=== PATIENT | female | born 1940 | race Caucasian/White ===

== ENCOUNTER → 2018-09-28 | Emergency (ER) | payer MEDICARE ==
[~2018-09-28] MED LIST: Iodixanol* (CONTRAST) 320 MG/ML 100 ML SDV IV ONE; Morphine 4 MG/ML VIAL (1 ml) 4 MG/ML VIAL IV ONE; Ondansetron INJ* 2 MG/ML VIAL IV ONE; hydrALAZINE IV* 20 MG/ML VIAL IV SLOW PU ONE
--- NOTE | 2018-09-28 02:35 | ED ---
Abdominal Pain/Female - HPI Summary HPI Summary: This pt is a 78 y/o F presenting to [facility] with her and a CC of RUQ abdominal pain that has begun to radiate into her back. She states that she was recently diagnosed with muscle pain from her PCP. Tonight she stated that she took her pain medication at 0000 09/28/18 but by 0100 the pt states that the pain was too much to bear. She stated that the pain was rated a 9/10 in severity. The pain has been worsening since 09/24/18. She stated that she was also feeling nauseas but denies any vomiting during the onset. She also denies any fevers, diaphoresis, headaches, and CP. She had no aggravating or alleviating symptoms. She has no pertinent Hx. - History of Current Complaint Chief Complaint: EDFlankPain Stated Complaint: R FLANK PAIN PER PT Time Seen by Provider: 09/28/18 02:18 Hx Obtained From: Patient ?: No Onset/Duration: Gradual Onset, Lasting Days - 4, Still Present, Worse Since - onset Timing: Intermittent Episode Lasting Severity Initially: Moderate Severity Currently: Severe Pain Intensity: 9 Pain Scale Used: 0-10 Numeric Location: Discrete At: RUQ Radiates: Yes Radiates to: Back Aggravating Factor(s): Nothing Alleviating Factor(s): Nothing Associated Signs and Symptoms: Positive: Negative - headaches, Back Pain, Nausea. Negative: Diaphoresis, Fever, Chest Pain, Vomiting, Diarrhea Allergies/Adverse Reactions: Allergies Allergy/AdvReac Type Severity Reaction Status Date / Time codeine Allergy Nausea Verified 09/28/18 01:59 Xivazht-Rxl-Bha Reductase Allergy Unknown Verified 09/28/18 01:59 Inhibitor Reaction Details Sulfa (Sulfonamide Allergy Unknown Verified 09/28/18 01:59 Antibiotics) Reaction Details varenicline Allergy Unknown Verified 09/28/18 01:59 Reaction Details Home Medications: Home Medications Cyclobenzaprine TAB* [Flexeril 10 MG TAB*] 10 mg PO TID PRN 09/28/18 [History Confirmed 09/28/18] Meloxicam 7.5 mg PO TID PRN 09/28/18 [History Confirmed 09/28/18] PMH/Surg Hx/FS Hx/Imm Hx Previously Healthy: No Endocrine/Hematology History: Reports: Hx Diabetes - DIET CONTROLLED Musculoskeletal History: Reports: Hx Arthritis - LEFT HAND,BACK Denies: Hx Osteoporosis Sensory History: Reports: Hx Contacts or Glasses - READING Denies: Hx Hearing Aid Opthamlomology History: Reports: Hx Contacts or Glasses - READING - Surgical History Surgery Procedure, Year, and Place: APPENDECTOMY 1998. HYSTERECTOMY 1977 [facility] [place]. BILAT FALLOPIAN TUBE SURGERY 1971 [facility] [place] Hx Anesthesia Reactions: No Infectious Disease History: No Infectious Disease History: Denies: Traveled Outside the [place] in Last 30 Days - Social History Alcohol Use: Daily Alcohol Amount: 2 SHOTS/DAY Substance Use Type: Reports: None Smoking Status (MU): Heavy Every Day Tobacco Smoker Type: Cigarettes Amount Used/How Often: 1 PACK/DAY Length of Time of Smoking/Using Tobacco: 16 YRS Have You Smoked in the Last Year: Yes Review of Systems Negative: Fever, Skin Diaphoresis Negative: Chest Pain Positive: Abdominal Pain - RUQ, Nausea. Negative: Vomiting, Diarrhea Positive: Other - back pain Negative: Headache All Other Systems Reviewed And Are Negative: Yes Physical Exam - Summary Physical Exam Summary: VITAL SIGNS: Reviewed. GENERAL: Patient is a well-developed and nourished female who is lying comfortable in the stretcher. Patient is not in any acute respiratory distress. HEAD AND FACE: No signs of trauma. No ecchymosis, hematomas or skull depressions. No sinus tenderness. EYES: PERRLA, EOMI x 2, No injected conjunctiva, no nystagmus. EARS: Hearing grossly intact. Ear canals and tympanic membranes are within normal limits. MOUTH: Oropharynx within normal limits. NECK: Supple, trachea is midline, no adenopathy, no JVD, no carotid bruit, no c- spine tenderness, neck with full ROM CHEST: Symmetric, no tenderness at palpation LUNGS: Clear to auscultation bilaterally. No wheezing or crackles. CVS: Regular rate and rhythm, S1 and S2 present, no murmurs or gallops appreciated. ABDOMEN: Soft, RUQ tenderness. No signs of distention. No rebound no guarding, and no masses palpated. Bowel sounds are normal. EXTREMITIES: FROM in all major joints, no edema, no cyanosis or clubbing. NEURO: Alert and oriented x 3. No acute neurological deficits. Speech is normal and follows commands. SKIN: Dry and warm Triage Information Reviewed: Yes Vital Signs On Initial Exam: Initial Vitals Temp Pulse Resp BP Pulse Ox 97.7 F 64 18 211/86 99 09/28/18 01:54 09/28/18 01:54 09/28/18 01:54 09/28/18 01:54 09/28/18 01:54 Vital Signs Reviewed: Yes Diagnostics - Vital Signs Vital Signs Temp Pulse Resp BP Pulse Ox 09/28/18 01:54 97.7 F 64 18 211/86 99 - Laboratory Result Diagrams: 09/28/18 02:51 09/28/18 02:51 Lab Statement: Any lab studies that have been ordered have been reviewed, and results considered in the medical decision making process. - CT CT A/P CT Interpretation Completed By: Radiologist Summary of CT Findings: 1. Question of sludge or faint stones in the gallbladder. 2. Atherosclerotic plaque at the left renal artery origin with suggestion of a. significant stenosis. 3. Colonic diverticulosis without diverticulitis. 4. Status post hysterectomy. 5. Borderline fluid distention of some small bowel segments in the left abdomen. with air-fluid levels which may reflect ileus or possible enteritis. 6. Otherwise negative CT abdomen/ pelvis. ED Physician has reviewed this report Abdominal Pain Fem Course/Dx - Course Course Of Treatment: This pt is a 78 y/o F presenting to [facility] with her and a CC of R sided flank pain that has begun to radiate into her back. She states that she was recently diagnosed with muscle pain from her PCP. Tonight she stated that she took her pain medication at 0000 09/28/18 but by 0100 the pt states that the pain was too much to bear. Her PE found that she had RUQ tenderness. Her CT A/P found 1. Question of sludge or faint stones in the gallbladder. 2. Atherosclerotic plaque at the left renal artery origin with suggestion of a. significant stenosis. 3. Colonic diverticulosis without diverticulitis. 4. Status post hysterectomy. 5. Borderline fluid distention of some small bowel segments in the left abdomen. with air-fluid levels which may reflect ileus or possible enteritis. 6. Otherwise negative CT abdomen/ pelvis. She has no abnormal lab values. She will be discharged home with a Dx of cholelithiases and given instructions to follow up with surgery DEEPA. - Diagnoses Provider Diagnoses: Cholelithiases Discharge - Sign-Out/Discharge Documenting (check all that apply): Patient Departure - discharge Patient Received Moderate/Deep Sedation with Procedure: No - Discharge Plan Condition: Stable Disposition: HOME Patient Education Materials: Gallstones (ED) Referrals: Mauricio Aldrich MD [Primary Care Provider] - 2 Days Additional Instructions: Please follow up with Dr. Vital, Surgery, [facility] for a surgery consultation. Also follow up with your primary care physician in 2 days. Take the prescribed medication as directed. - Attestation Statements Document Initiated by Scribe: Yes Documenting Scribe: Renan Cook Provider For Whom Scribe is Documenting (Include Credential): Jacques Garcia MD Scribe Attestation: IRenan, scribed for Jacques Garcia MD on 09/28/18 at 0606. Status of Scribe Document: Ready
[2018-09-28 02:58] LABS: ABS Basophils 0.1 10^3/ul (0-0.2); ABS Eosinophils 0.1 10^3/ul (0-0.6); ABS Lymphocytes 1.5 10^3/ul (1.0-4.8); ABS Monocytes 0.5 10^3/ul (0-0.8); ABS Neutrophils 5.9 10^3/ul (1.5-7.7); Eosinophil % 1.5 %; Hematocrit 47 % (35-47); Hemoglobin 15.8 g/dL (12.0-16.0); Lymphocyte % 18.9 %; Mean Corpuscular HGB Conc 34 g/dL (31-36); Mean Corpuscular Hemoglobin 30 pg (27-31); Mean Corpuscular Volume 90 fL (80-97); Mean Platelet Volume 10.6 fL (7.4-10.4); Nucleated Red Blood Cells % 0.1; Platelet Count 166 10^3/uL (150-450); Red Blood Count 5.22 10^6 /uL (3.70-4.87); Red Cell Distribution Width 15 % (10-15); White Blood Count 8.1 10^3/uL (3.5-10.8)
[2018-09-28 03:13] LABS: Albumin 4.2 g/dL (3.2-5.2); Albumin/Globulin Ratio 1.3 (1-3); BUN/Creatinine Ratio 13.5 (8-20); C Reactive Protein 5.58 mg/L (<8.01); Calcium 9.7 mg/dL (8.6-10.3); EGFR African American 68.4 (>60); EGFR Non-African American 56.5 (>60); Globulin 3.2 g/dL (2-4); Potassium 4.1 mmol/L (3.5-5.0); Total Bilirubin 0.4 mg/dL (0.2-1.0); Total Protein 7.4 g/dL (6.4-8.9)
[2018-09-28 03:29] LABS: Activated Partial Thrombo Time 33.9 seconds (26.0-38.0); INR 0.88 (0.82-1.09)
[2018-09-28 06:32] VITALS: BP 124/54
== END | disposition home or self-care (01) ==
LOC: ED 01:51
DX: K80.20 Calculus of gallbladder without cholecystitis without obstruction (principal); E11.9 Type 2 diabetes mellitus without complications; F17.210 Nicotine dependence, cigarettes, uncomplicated; Z88.5 Allergy status to narcotic agent; Z88.2 Allergy status to sulfonamides; Z88.8 Allergy status to other drugs, medicaments and biological substances; Z79.899 Other long term (current) drug therapy; I70.1 Atherosclerosis of renal artery; Z90.710 Acquired absence of both cervix and uterus
CPT/HCPCS: 36415; 74177; 80053; 82150; 83690; 85025; 85610; 85730; 86140; 96365; 96375; 99285; J0360; J2270; J2405; Q9967

== ENCOUNTER 2018-10-04 10:22 | Observation (INO) | payer MEDICARE ==
[~2018-10-04 10:22] MED LIST changes: -Iodixanol* (CONTRAST) 320 MG/ML 100 ML SDV IV ONE; -Morphine 4 MG/ML VIAL (1 ml) 4 MG/ML VIAL IV ONE; -Ondansetron INJ* 2 MG/ML VIAL IV ONE; +ceFAZolin 2 GM in NS PREMIX(*) 2 GM/100 ML BAG IVPB ONE; +ceFAZolin VIAL(*) 2 GM in NS 0.9% 100 ML* 100 ML IVPB ONE; -hydrALAZINE IV* 20 MG/ML VIAL IV SLOW PU ONE
--- OUTSIDE RECORDS SUMMARY | 2018-10-04 10:46 | XMS REPORT | Continuity of Care Document ---
:1940 External Reference #:[id number] Author Name Juana, Cynthia Care Team Providers Name Role Phone Michela Leigh MD Primary Care Physician Unavailable Payers Date Identification Numbers Payment Provider Subscriber Effective: 2017 Policy Number: [id number] [employer] Jeanette Lill PayID: [id number] [address] [place] [address] Effective: 2014 Policy Number: [id number] Medicare Blue [facility] Jeanette Bucio Group Number: [id number] [address] [address] PayID: [id number] [place] [address] Problems Active Problems Provider Date Diabetes mellitus Mauricio Aldrich M.D. Onset: 07/09/2014 Dyslipidemia Mauricio Aldrich M.D. Onset: 07/09/2014 Neuropathy Mauricio Aldrich M.D. Onset: 07/09/2014 Tobacco user Mauricio Aldrich M.D. Onset: 07/09/2014 Localized, primary osteoarthritis of the Jagdeep Villalba M.D. Onset: 2015 pelvic region and thigh Prosthetic arthroplasty of the hip Jagdeep Villalba M.D. Onset: 04/17/2015 Family History Date Family Member(s) Observation Comments General Unknown Social History Type Date Description Comments Sex Unknown Marital Status Lives With Spouse Occupation Retired ETOH Use Drinks 3 Alcoholic Beverages Per Week Tobacco Use Start: Unknown Heavy tobacco smoker 1 PPD x 15 years (more than 10 cigarettes/day) Recreational Drug Use Denies Drug Use Smoking Status Reviewed: 09/29/18 Heavy tobacco smoker 1 PPD x 15 years (more than 10 cigarettes/day) Exercise Type/Frequency Does not exercise Allergies, Adverse Reactions, Alerts Active Allergies Reaction Severity Comments Date Sulfa Antibiotics 03/21/2014 Chantix 03/21/2014 Statins 03/21/2014 Codeine 03/21/2014 Medications Active Medications SIG Qnty Indications Ordering Provider Date Aspirin as needed Unknown 325mg Tablets Naproxen 1 tablet with Unknown 500mg Tablets food by mouth twice a day as needed Vitamin D 1 by mouth every Unknown 2000Unit day Tablets History Medications Nicotine apply 1 patch per 30units 305.1 Mauricio Aldrich, 07/19/2014 - day M.D. 11/28/2014 14mg/24HR Patches 24HR Caltrate 600+D 1 by mouth twice a 60tabs M85.9 Mauricio Aldrich, 07/19/2014 - day M.D. Unknown [id number] Tablets Oxycodone-Acetamin one to two tabs by 90tabs Jagdeep Villalba, 04/24/2014 - ophen mouth every 4-6 M.D. 05/27/2014 5-325mg hours as needed for Tablets pain Colace one capsule two 60caps Jagdeep Villalba, 04/24/2014 - 100mg times a day as M.D. 05/27/2014 Capsules needed constipation Coumadin as directed 30tabs Jagdeep Villalba, 04/24/2014 - 2mg M.D. 05/27/2014 Tablets Zetia 1 by mouth every day 90tabs Amrit James, - 10mg [employer] Unknown Tablets Gabapentin 1 capsule at bedtime 90caps Mauricio Aldrich, - 300mg (pt taking as M.D. Unknown Capsules needed) Vital Signs Date Vital Result Comment 09/29/2018 2:29pm Height 62 inches 5'2" Weight 140.00 lb Heart Rate 72 /min BP Systolic 130 mmHg BP Diastolic 62 mmHg Respiratory Rate 16 /min Body Temperature 98.6 F BMI (Body Mass Index) 25.6 kg/m2 04/17/2015 11:11am Height 62 inches 5'2" Weight 152.00 lb BMI (Body Mass Index) 27.8 kg/m2 01/21/2015 10:37am Height 62 inches 5'2" Weight 152.38 lb Heart Rate 72 /min BP Systolic Sitting 158 mmHg BP Diastolic Sitting 76 mmHg Body Temperature 97.8 F O2 % BldC Oximetry 96 % BMI (Body Mass Index) 27.9 kg/m2 11/28/2014 1:10pm Height 62 inches 5'2" Weight 158.00 lb Heart Rate 80 /min BP Systolic Sitting 120 mmHg BP Diastolic Sitting 58 mmHg Body Temperature 97.4 F O2 % BldC Oximetry 98 % BMI (Body Mass Index) 28.9 kg/m2 07/30/2014 10:49am Height 62 inches 5'2" Weight 154.00 lb Pain Level 0 BMI (Body Mass Index) 28.2 kg/m2 07/19/2014 10:15am Weight 156.00 lb Heart Rate 68 /min BP Systolic Sitting 142 mmHg BP Diastolic Sitting 62 mmHg Body Temperature 97.4 F O2 % BldC Oximetry 97 % 07/05/2014 1:09pm Height 62 inches 5'2" Weight 156.00 lb Heart Rate 75 /min BP Systolic Sitting 156 mmHg BP Diastolic Sitting 56 mmHg Body Temperature 98.2 F O2 % BldC Oximetry 97 % BMI (Body Mass Index) 28.5 kg/m2 05/28/2014 11:23am Height 62 inches 5'2" Heart Rate 90 /min BP Systolic 140 mmHg BP Diastolic 80 mmHg 04/24/2014 1:48pm Height 62 inches 5'2" Weight 150.00 lb Heart Rate 72 /min BP Systolic 152 mmHg BP Diastolic 67 mmHg BMI (Body Mass Index) 27.4 kg/m2 03/27/2014 1:03pm Height 62 inches 5'2" Weight 150.00 lb Heart Rate 53 /min BP Systolic 165 mmHg BP Diastolic 65 mmHg BMI (Body Mass Index) 27.4 kg/m2 Results Test Date Facility Test Result H/L Range Note Laboratory test 07/22/2015 [facility] In House Hemoglobin A1c 6.0 5-7 finding Lipid Profile 01/14/2015 [facility] Triglycerides 83 mg/dL N 1, 2 (Trig/Chol/HDL) [address] [place] [address] [phone] Cholesterol 206 mg/dL N 3 HDL Cholesterol 55.1 mg/dL N 4 LDL Cholesterol 134 mg/dL N 5 Comp Metabolic Panel 01/14/2015 [facility] Sodium 138 mmol/L N 133-[address] [place] [address] [phone] Potassium 4.5 mmol/L N 3.5-5.0 Chloride 105 mmol/L N 101-111 Co2 Carbon Dioxide 25 mmol/L N 22-32 Anion Gap 8 mmol/L N 2-11 Glucose 100 mg/dL N 70-100 Blood Urea Nitrogen 11 mg/dL N 6-24 Creatinine 0.76 mg/dL N 0.51-0.95 BUN/Creatinine Ratio 14.5 N 8-20 Calcium 9.8 mg/dL N 8.6-10.3 Total Protein 7.0 g/dL N 6.4-8.9 Albumin 4.2 g/dL N 3.2-5.2 Globulin 2.8 g/dL N 2-4 Albumin/Globulin Ratio 1.5 N 1-3 Total Bilirubin 0.40 mg/dL N 0.2-1.0 Alkaline Phosphatase 78 U/L N 34-104 Alt 21 U/L N 7-52 Ast 14 U/L N 13-39 Egfr Non- 74.8 N >60 Egfr 96.2 N >60 6 Laboratory test 01/14/2015 [facility] Hemoglobin A1c 6.2 % High Less [address] (Glyco HGB) than 6.0 [place] [address] [phone] Urine 01/14/2015 [facility] Ur Microalbumin 7.[address]album[address] (mg/L) mg/[place] [address] [phone] Urine Creatinine 105.70 mg/dL N Urine Microalbumin/Creatinine 6.6 ug/mg N <31 Urinalysis Profile 01/14/2015 [facility] Urine Color Yellow N [address] [place] [address] [phone] Urine Appearance Clear N Urine Specific [place] 1.014 N 1.010-1.030 Urine pH 6.0 N 5-9 Urine Urobilinogen Negative N Negative Urine Ketones Negative N Negative Urine Protein Negative N Negative Urine Leukocytes Negative N Negative Urine Blood Negative N Negative Urine Nitrite Negative N Negative Urine Bilirubin Negative N Negative Urine Glucose Negative N Negative Laboratory test 07/15/2014 [facility] TSH (Thyroid 2.50 ?IU/mL N 0.34-5.60 [address] Stim [place]) [place] [address] [phone] Comp Metabolic 07/15/2014 [facility] Sodium 138 mmol/L N 133- [address] [place] [address] [phone] Potassium 4.3 mmol/L N 3.5-5.0 Chloride 107 mmol/L N 101-111 Co2 Carbon Dioxide 25 mmol/L N 22-32 Anion Gap 6 mmol/L N 2-11 Glucose 103 mg/dL High 70-100 Blood Urea Nitrogen 11 mg/dL N 6-24 Creatinine 0.80 mg/dL N 0.51-0.95 BUN/Creatinine Ratio 13.8 N 8-20 Calcium 9.5 mg/dL N 8.6-10.3 Total Protein 6.9 g/dL N 6.4-8.9 Albumin 4.1 g/dL N 3.2-5.2 Globulin 2.8 g/dL N 2-4 Albumin/Globulin Ratio 1.5 N 1-3 Total Bilirubin 0.50 mg/dL N 0.2-1.0 Alkaline Phosphatase 67 U/L N 34-104 Alt 21 U/L N 7-52 Ast 18 U/L N 13-39 Egfr Non- 70.5 N >60 Egfr 90.7 N >60 9 CBC Auto Diff 07/15/2014 [facility] White Blood 6.7 10^3/uL N 4.8-10.[address] [place] [address] [phone] Red Blood Count 5.25 10^6/uL N 4.0-5.4 Hemoglobin 16.1 g/dL High 12.0-16.0 Hematocrit 48 % High 35-47 Mean Corpuscular Volume 91 fL N 80-97 Mean Corpuscular Hemoglobin 31 pg N 27-31 Mean Corpuscular HGB Conc 34 g/dL N 31-36 Red Cell Distribution Width 15 % N 10.5-15 Platelet Count 188 10^3/uL N 150-450 Mean Platelet Volume 11 um3 High 7.4-10.4 Abs Neutrophils 4.0 10^3/uL N 1.5-7.7 Abs Lymphocytes 2.0 10^3/uL N 1.0-4.8 Abs Monocytes 0.6 10^3/uL N 0-0.8 Abs Eosinophils 0 10^3/uL N 0-0.6 Abs Basophils 0.1 10^3/uL N 0-0.2 Abs Nucleated RBC 0 10^3/uL N Granulocyte % 59.7 % N 38-83 Lymphocyte % 30.2 % N 25-47 Monocyte % 8.6 % N 1-9 Eosinophil % 0.7 % N 0-6 Basophil % 0.8 % N 0-2 Nucleated Red Blood Cells % 0.1 N Laboratory test 07/15/2014 [facility] Hemoglobin A1c 6.2 % High Less [address] (Glyco HGB) than 6.0 [place] [address] [phone] Lipid Profile 07/15/2014 [facility] Triglycerides 102 N 11 (Trig/Chol/HDL) [address] mg/[place] [address] [phone] Cholesterol 199 mg/dL N 12 HDL Cholesterol 53.8 mg/dL N 13 LDL Cholesterol 125 mg/dL N 14 CBC No Diff 04/25/2014 [facility] White Blood 8.4 10^3/uL N 4.8-10.[address] [place] [address] [phone] Red Blood Count 5.08 10^6/uL N 4.0-5.4 Hemoglobin 16.2 g/dL High 12.0-16.0 Hematocrit 47 % N 35-47 Mean Corpuscular Volume 93 fL N 80-97 Mean Corpuscular Hemoglobin 32 pg High 27-31 Mean Corpuscular HGB Conc 34 g/dL N 31-36 Red Cell Distribution Width 14 % N 10.5-15 Platelet Count 190 10^3/uL N 150-450 Mean Platelet Volume 11 um3 High 7.4-10.4 Basic Metabolic Panel 04/25/2014 [facility] Sodium 138 mmol/L N 133-[address] [place] [address] [phone] Potassium 4.1 mmol/L N 3.5-5.0 Chloride 104 mmol/L N 101-111 Co2 Carbon Dioxide 26 mmol/L N 22-32 Anion Gap 8 mmol/L N 2-11 Glucose 79 mg/dL N 70-100 Blood Urea Nitrogen 9 mg/dL N 6-24 Creatinine 0.81 mg/dL N 0.51-0.95 BUN/Creatinine Ratio 11.1 N 8-20 Calcium 9.8 mg/dL N 8.6-10.3 Egfr Non- 69.7 N >60 Egfr 89.6 N >60 16 Type & Screen 04/25/2014 [facility] Patient Blood Type A Positive N [address] [place] [address] [phone] Antibody Screen NEGATIVE N Urinalysis Profile 04/25/2014 [facility] Urine Color Straw N [address] [place] [address] [phone] Urine Appearance Clear N Urine Specific [place] 1.002 Low 1.010-1.030 Urine pH 6.0 N 5-9 Urine Urobilinogen Negative N Negative Urine Ketones Negative N Negative Urine Protein Negative N Negative Urine Leukocytes Negative N Negative Urine Blood Negative N Negative Urine Nitrite Negative N Negative Urine Bilirubin Negative N Negative Urine Glucose Negative N Negative 1 PT IS FASTING 2 Desirable <150 Borderline high 150-199 High 200-499 Very High >500 3 Desirable <200 Borderline high 200-239 High >239 4 Low <40 Desirable: 40-60 High: >60 5 Desirable: <100 mg/dL Near Optimal: 100-129 mg/dL Borderline High: 130-159 mg/dL High: 160-189 mg/dL Very High: >189 mg/dL 6 Because ethnic data is not always readily available, this report includes an eGFR for both -Americans and non- Americans. The National Kidney Disease Education Program (NKDEP) does not endorse the use of the MDRD equation for patients that are not between the ages of 18 and 70, are , have extremes of body size, muscle mass, or nutritional status, or are non- or non-. According to the National Kidney Foundation, irrespective of diagnosis, the stage of the disease is based on the level of kidney function: Stage Description GFR(mL/min/1.73 m(2)) 1 Kidney damage with normal or decreased GFR 90 2 Kidney damage with mild decrease in GFR 60-89 3 Moderate decrease in GFR 30-59 4 Severe decrease in GFR 15-29 5 Kidney failure <15 (or dialysis) 7 Therapeutic target for the treatment of diabetes Mellitus patients is <7% HBA1C, and in selective patients <6.0%.Please refer to [employer] Diabetes Association Diabetic care guidelines for further information. 8 PT IS FASTING 9 Because ethnic data is not always readily available, this report includes an eGFR for both -Americans and non- Americans. The National Kidney Disease Education Program (NKDEP) does not endorse the use of the MDRD equation for patients that are not between the ages of 18 and 70, are , have extremes of body size, muscle mass, or nutritional status, or are non- or non-. According to the National Kidney Foundation, irrespective of diagnosis, the stage of the disease is based on the level of kidney function: Stage Description GFR(mL/min/1.73 m(2)) 1 Kidney damage with normal or decreased GFR 90 2 Kidney damage with mild decrease in GFR 60-89 3 Moderate decrease in GFR 30-59 4 Severe decrease in GFR 15-29 5 Kidney failure <15 (or dialysis) 10 Therapeutic target for the treatment of diabetes Mellitus patients is <7% HBA1C, and in selective patients <6.0%.Please refer to [employer] Diabetes Association Diabetic care guidelines for further information. 11 Desirable <150 Borderline high 150-199 High 200-499 Very High >500 12 Desirable <200 Borderline high 200-239 High >239 13 Low <40 Desirable: 40-60 High: >60 14 Desirable: <100 mg/dL Near Optimal: 100-129 mg/dL Borderline High: 130-159 mg/dL High: 160-189 mg/dL Very High: >189 mg/dL 15 04/29 16 Because ethnic data is not always readily available, this report includes an eGFR for both -Americans and non- Americans. The National Kidney Disease Education Program (NKDEP) does not endorse the use of the MDRD equation for patients that are not between the ages of 18 and 70, are , have extremes of body size, muscle mass, or nutritional status, or are non- or non-. According to the National Kidney Foundation, irrespective of diagnosis, the stage of the disease is based on the level of kidney function: Stage Description GFR(mL/min/1.73 m(2)) 1 Kidney damage with normal or decreased GFR 90 2 Kidney damage with mild decrease in GFR 60-89 3 Moderate decrease in GFR 30-59 4 Severe decrease in GFR 15-29 5 Kidney failure <15 (or dialysis) Procedures Date Code Description Status 05/29/2015 371358324 Diabetic Retinal Eye Exam Completed 07/17/2014 [id number] Bone Mineral Density Test Completed 04/29/2014 09209 THR Total Hip Replacement Completed 04/29/2014 46226 THR Total Hip Replacement Completed 03/07/2009 [id number] Mammogram Completed 03/07/2008 [id number] Colonoscopy Completed Encounters Type Date Location Provider Dx Diagnosis Office Visit 04/17/2015 Orthopedic Jagdeep Villalba, M76.31 Iliotibial band 11:30a [facility] syndrome, right leg Z96.642 Presence of left artificial hip joint Office Visit 01/21/2015 11:00a [facility] Internal Mauricio Aldrich, R73.01 Impaired fasting Medicine - Suite M.D. glucose R E78.4 Other hyperlipidemia R03.0 Elevated blood-pressure reading, w/o diagnosis of htn M85.9 Disorder of bone density and structure, unspecified F17.210 Nicotine dependence, cigarettes, uncomplicated E66.3 Overweight M85.88 Oth disrd of bone density and structure, other site Office Visit 11/28/2014 1:20p [facility] Internal Mauricio Aldrich, H61.22 Impacted cerumen, Medicine - Suite M.DLuz left ear R Office Visit 07/30/2014 10:45a Orthopedic María V43.64 Hip Replacement [facility] By Other Means C.M.ALuz Office Visit 07/19/2014 10:40a [facility] Internal Mauricio Aldrich, 790.21 Impaired Fasting Medicine - Suite M.D. Glucose R 272.4 Hyperlipidemia Other Unspec 796.2 Blood Pressure Reading Elevated W/O Hypertension 733.90 Bone & Cartilage Disorder Unspec 305.1 Tobacco Use Disorder 278.02 Overweight 250.00 Diabetes Mellitus W/O Compl Type II Or Unspec Controlled Office Visit 07/05/2014 1:00p [facility] Internal Mauricio Aldrich, V70.0 Examination Medicine - Suite M.D. General Medical R Routine AT Health Care Facility 272.4 Hyperlipidemia Other Unspec 250.00 Diabetes Mellitus W/O Compl Type II Or Unspec Controlled 796.2 Blood Pressure Reading Elevated W/O Hypertension 305.1 Tobacco Use Disorder 278.02 Overweight Office Visit 03/27/2014 Orthopedic Jagdeep 715.95 Osteoarthrosis 1:00p [facility] Villalba Unspec Genlzd Or C.M.A. Localized Pelvic & Thigh
[2018-10-04 12:09] LABS: Hematocrit 47 % (35-47); Hemoglobin 16.7 g/dL (12.0-16.0); Mean Corpuscular HGB Conc 36 g/dL (31-36); Mean Corpuscular Hemoglobin 31 pg (27-31); Mean Corpuscular Volume 88 fL (80-97); Mean Platelet Volume 9.9 fL (7.4-10.4); Platelet Count 144 10^3/uL (150-450); Red Blood Count 5.39 10^6 /uL (3.70-4.87); Red Cell Distribution Width 15 % (10-15)
[2018-10-04 12:20] LABS: INR 0.88 (0.82-1.09)
[2018-10-04] MEDS ORDERED: Ondansetron INJ* 2 MG/ML VIAL IV PRN (12:29)
[2018-10-04] MEDS ORDERED: Morphine 4 MG/ML VIAL (1 ml) 4 MG/ML VIAL IV PRN (12:29)
[2018-10-04 12:32] LABS: Albumin 4.5 g/dL (3.2-5.2); Albumin/Globulin Ratio 1.4 (1-3); BUN/Creatinine Ratio 21.3 (8-20); Calcium 10.4 mg/dL (8.6-10.3); EGFR African American 90.9 (>60); EGFR Non-African American 75.1 (>60); Globulin 3.3 g/dL (2-4); Potassium 4.1 mmol/L (3.5-5.0); Total Bilirubin 0.6 mg/dL (0.2-1.0); Total Protein 7.8 g/dL (6.4-8.9)
[2018-10-04] MEDS: NS 0.9% 1000 ML** 1,000 ML IV SCH ×2 (12:44→23:22)
--- NOTE | 2018-10-04 14:30 | HP ---
AMENDED REPORT NOW INCLUDES DESIGNATED COSIGNER CC: Dr. Michela eLigh.* ADMISSION HISTORY AND PHYSICAL: DATE OF ADMISSION: 10/04/18 ATTENDING SURGEON: Dr. Colton Alvarez.* (DICTATED BY [facility]) CHIEF COMPLAINT: Right flank pain. 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 She states that it was an achy pain that gradually escalated to a level of 10/10 and seemed to radiate to the back. There were some associated chills, but no nausea or vomiting at that time. She did present to the ED where she received morphine with relief. A CT scan with IV contrast only was performed showing suggestion of cholelithiasis and sludge, diverticulosis without diverticulitis and some mildly dilated small bowel with air-fluid levels. She was discharged and then seen by Dr. Mercer in the office on 09/29/18. He arranged for an ultrasound. She states that she continued to have low-grade symptoms over the next few days, particularly notable at night when she found it uncomfortable to get to sleep. Last night, she had a second exacerbation of pain up to 10/10 and states that her pain currently is 8/10. She did complete the ultrasound this morning and was brought in as a direct admission for probable biliary colic. She was noted on exam to have a number of skin lesions following dermatome that she states began just prior to her initial presentation to the ED last week. She has no prior history of shingles. She had not had any urinary symptoms. PAST MEDICAL HISTORY: Significant for degenerative joint disease and probable degenerative disk disease. She has diet-controlled type 2 diabetes. She has some seasonal and environmental allergies. PAST SURGICAL HISTORY: Previous surgeries include a left total hip arthroplasty ; appendectomy, remotely; bilateral cataract surgery, and abdominal hysterectomy for benign disease. She does also experience postoperative nausea and vomiting. CURRENT MEDICATIONS: She takes naproxen 500 mg once daily p.r.n., but not every day; loratadine 10 mg once daily. DRUG ALLERGIES: CODEINE (nausea), STATINS (muscle pain and GI side effects), SULFA (GI side effects), VARENICLINE (CHANTIX), central nervous system effects. FAMILY HISTORY: Not obtained. SOCIAL HISTORY: She is . She is a smoker of 1 pack per day for the past 20 years. She drinks on an average 3 drinks per week. She denies any other recreational drug use. REVIEW OF SYSTEMS: General: No additional constitutional symptoms as noted above. Her weight has been stable. HEENT: No new or additional problems noted. 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 No chest pain or palpitations. No history of hypertension. Respiratory: No history of asthma or chronic cough. She is an active smoker. GI: As above per HPI. No lower GI symptoms. Colonoscopy done approximately 8 to 10 years ago and thus far she has refused further screening. : No changes. No dark urine. JUNIOR NET DEVELOPER: Her most recent breast exam was probably 2 to 3 years ago by her primary care provider. Her last mammogram somewhere around 2010 or earlier (she has refused subsequent studies). PHYSICAL EXAMINATION GENERAL: Well-nourished, well-developed female, in mild distress. VITAL SIGNS: Height 5 feet 2 inches, weight 140 pounds. Other vital signs per nursing. HEENT: Pupils are equal, round, and reactive. EOMs intact. No conjunctival pallor or scleral icterus. Oropharynx: Mucous membranes are dry. She has full upper and lower dentures. No intraoral lesions. NECK: No lymphadenopathy, thyromegaly, or masses. LUNGS: Clear to auscultation. No wheezes. HEART: Regular rate and rhythm. No murmur noted. BREAST: Not examined. ABDOMEN: Bowel sounds present. Soft with tenderness in the right side including the right upper quadrant with equivocal Lopez sign. Remainder of the abdomen is soft and nontender. She is not particularly tender over the skin lesions themselves. GENITAL: Not done. RECTAL: Not done. BACK: No spinous process or CVA tenderness. EXTREMITIES: No edema. NEUROLOGICAL: Grossly intact. SKIN: Warm and dry. She has skin lesions in distribution of the dermatome along the right flank and anterior abdomen consistent with shingles. No other suspicious rashes or lesions. IMPRESSION: 1. Cholelithiasis with possible biliary colic. 2. Herpes zoster. PLAN: The patient was also seen and examined by Dr. Alvarez, who felt that at least part of her symptomatology and findings are accountable from the gallbladder and therefore plan is tentatively made for cholecystectomy. She also will be initiated on famciclovir for the herpes zoster. Lab work is still pending at this point. [facility] [id number]/[facility] #: [id number] SERAFIN
[2018-10-04] MEDS: FAMCICLOVIR 250 MG PO SCH ×2 (14:36→21:33)
[2018-10-04] MEDS: Morphine INJ* 2 MG/ML 1 ML SYRINGE (TWO MG - NEW SYRINGE VERSION) IV PRN ×2 (16:48→23:57)
[2018-10-05] MEDS ORDERED: Ondansetron INJ* 2 MG/ML VIAL IV SCH
[2018-10-05] MEDS ORDERED: Neostigmine Methylsulfate* 3 MG/3 ML SYRINGE IV SCH
[2018-10-05] MEDS ORDERED: fentaNYL* 50 MCG/ML 2 ML VIAL (100 MCG VIAL) IV SCH
[2018-10-05] MEDS ORDERED: Esmolol* 10 MG/ML 10 ML (100 mg) IV SCH
[2018-10-05] MEDS ORDERED: EPHEDrine (Pressors)* 50 MG/ML VIAL IV SLOW PU SCH
[2018-10-05] MEDS ORDERED: Ketorolac INJ* 30 MG/ML 1 ML VIAL IM SCH
[2018-10-05] MEDS ORDERED: Propofol* 10 MG/ML 20 ML BTL IV SCH
[2018-10-05] MEDS ORDERED: Rocuronium* 10 MG/ML VIAL IV SCH
[2018-10-05] MEDS ORDERED: Glycopyrrolate IV* 0.2 MG/ML 1 ML VIAL IV SLOW PU SCH ×2
[2018-10-05] MEDS ORDERED: hydrALAZINE IV* 20 MG/ML VIAL IV SLOW PU SCH
[2018-10-05] MEDS ORDERED: Lidocaine 2% PF * 5 ML VIAL IV SCH
[2018-10-05] MEDS ORDERED: Famotidine IV* 10 MG/ML 2 ML (20 mg) IV ONE (06:00)
[2018-10-05] MEDS ORDERED: Lactated Ringers 1000 ML Bag* 1,000 ML IV SCH (06:00)
[2018-10-05] MEDS ORDERED: Metoclopramide IV* 5 MG/ML 2 ML VIAL IV SLOW PU ONE (06:00)
[2018-10-05] MEDS ORDERED: ceFAZolin VIAL(*) 2 GM in NS 0.9% 100 ML* 100 ML IVPB ONE (07:00)
[2018-10-05] MEDS ORDERED: Bupivacaine 0.25% EPI 200,000* 30 ML SDV ONE (07:11)
[2018-10-05] MEDS ORDERED: Famotidine IV* 10 MG/ML 2 ML (20 mg) ONE (07:16)
[2018-10-05] MEDS ORDERED: Metoclopramide IV* 5 MG/ML 2 ML VIAL ONE (07:16)
[2018-10-05] MEDS ORDERED: ceFAZolin 2 GM in NS PREMIX(*) 2 GM/100 ML BAG IVPB ONE (07:28)
[2018-10-05] MEDS ORDERED: Naloxone* 0.4 MG/ML 1 ML VIAL IV PRN (08:38)
[2018-10-05] MEDS ORDERED: DiMENhydriNATE IV* 50 MG/ML VIAL IV PUSH PRN (08:38)
[2018-10-05] MEDS ORDERED: fentaNYL* 50 MCG/ML 2 ML VIAL (100 MCG VIAL) IV PRN (08:38)
[2018-10-05] MEDS ORDERED: oxyCODONE/Acetamin 5/325 MG* TAB PO PRN (10:20)
[2018-10-05] MEDS: FAMCICLOVIR 250 MG PO SCH ×2 (10:24→13:21)
--- NOTE | 2018-10-05 11:30 | OP ---
CC: Dr. Michela Leigh * DATE OF OPERATION: 10/05/18 - ROOM #[id number] DATE OF : 42 SURGEON: Dr. Colton Alvarez. PROP MAKING SUPERVISOR: Yi No NP. ANESTHESIOLOGIST: Dr. Purdy. ANESTHESIA: General. PRE-OP DIAGNOSIS: Acute cholecystitis. POST-OP DIAGNOSIS: Acute on chronic cholecystitis. OPERATIVE PROCEDURE: Laparoscopic cholecystectomy. ESTIMATED BLOOD LOSS: Minimal blood loss. FLUIDS: Minimal crystalloid fluid given. SPECIMEN: Gallbladder. DRAINS: None. INDICATIONS: The patient is a 78-year-old female whom I admitted to my service yesterday with concern for acute cholecystitis. Upon evaluation, the patient was noted also to have shingle lesions along the distribution of approximately T10. The patient was started on treatment for the shingles. She was noted to have nausea, vomiting and inability to take p.o. I discussed this with her and the possibility of having right upper quadrant pain secondary to the shingles versus symptomatic cholelithiasis and cholecystitis. Due to patient's inability to eat, I felt it is better to take her to the operating room for cholecystectomy given the findings on ultrasound of significant amount of gallstones. I outlined the details of the procedure going over the risks, benefits and alternatives and the patient agreed to proceed. We spoke of the possible complications, which include not limited to bleeding, infection, common bile duct injury, retained common bile duct stones, bowel injury, need for additional procedures or open procedures. Also, discussed the possibility of no resolution of pain. The patient signed consent. DESCRIPTION OF PROCEDURE: She was marked. Brought to the operating room, placed on the operating table in supine position. Preoperative antibiotics were given. Sequential devices were placed on bilateral lower extremities. General anesthesia was induced. A time-out was performed. A supraumbilical incision was made. The skin was then elevated and a Veress needle inserted into the abdominal cavity, which was then allowed to insufflate to a pressure of 15 mmHg. The patient tolerated the insufflation well. A 5-mm optical trocar was then inserted, after the Veress needle was removed, review of the abdomen showed normal appearing bowel, large liver. We then placed trocars in the following positions, a 12-mm in the subxiphoid area and two 5-mm along the right costal margin. The table was repositioned. The gallbladder was identified. The fundus was elevated. Adhesions to the omentum were taken down with electrocautery, and then I reevaluated the infundibular region of the gallbladder which showed adhesions to the duodenum. These were taken down with scissors until we could fully evaluate the triangle of Calot, which was identified obtaining the critical view. Dissection was carried out taking the peritoneum off the lateral aspect of the gallbladder and then off the medial aspect. The noted Calot was dissected up. The cystic artery was doubly clipped and ligated. This allowed us to get a better window to the cystic duct. This was cleared off. Chronic changes were noted in addition. We utilized scissors and cautery as needed. The cystic duct was then doubly clipped and ligated and the gallbladder was removed from the liver bed and placed in an endoscopic retrieval bag. Review of the cystic duct stump, cystic artery stump showed that it was intact without bleeding or bile. Review of the abdomen showed no fluid. No bleeding. Hemostasis was excellent. Gallbladder was removed through the subxiphoid incision, which was dilated with Monika clamp, and the gallbladder removed in an endoscopic retrieval bag and passed off as specimen. The abdomen was then allowed to collapse. Trocars were removed under direct vision and all 4 skin incisions were reapproximated with 4- 0 Monocryl subcuticular stitches followed by Steri-Strips and sterile dressing. The patient tolerated the procedure well and transferred to PACU in stable condition. [id number]/[facility] #: [id number] MTDD
--- NOTE | 2018-10-05 12:46 | DS ---
CC: Dr. Michela Leigh at [facility] * DISCHARGE SUMMARY: DATE OF ADMISSION: 10/04/18 DATE OF DISCHARGE: 10/05/18 ATTENDING SURGEON: Dr. Colton Alvarez * (LEX Euceda, dictating). HOSPITAL COURSE: Please refer to admission history and physical and operative note for details. The patient was admitted on 10/04/18, after completing an outpatient ultrasound which confirmed the presence of gallstones and a positive sonographic Lopez sign. The gallbladder wall was measured at 3 mm in thickness. The common bile duct was normal in size. Her admission lab work revealed a white blood cell count of 8000, hemoglobin of 16.7. Chemistries essentially normal and specifically with normal liver function tests. She was noted on initial exam to have skin lesions following a right lower thoracic dermatome consistent with shingles. This seemed to be far enough removed from the area of the right upper quadrant and she was tender over the gallbladder. Therefore, plans were made for laparoscopic cholecystectomy. Surgery was performed on the morning of 10/05/18, by Dr. Alvarez. See separate report for details. Postoperatively, the patient's pain appears to be under good control. She still needs to ambulate and void, but plans are for discharge later this morning. On exam, temperature 98.6, blood pressure 151/57, pulse 61, respirations 18, room air saturation 95%. Laparoscopic incision sites are clean and dry under Tegaderm dressings. IMPRESSION: Status post laparoscopic cholecystectomy with secondary diagnosis of shingles. The patient had been initiated on famciclovir for which she has received 3 doses thus far. She will complete a total of 7 days of therapy. Instructions were reviewed regarding wound care, diet, and activity. She has a followup with our office on 10/16/18. She is discharged to home in good condition. [facility] [id number]/[facility] #: [id number] MTDD
[2018-10-05 13:06] VITALS: BP 122/43
== END 2018-10-05 13:30 | disposition home or self-care (01) ==
LOC: SSU 10:43
PROVIDERS: ADMIT Surgery; ATTEND Surgery
PROC: 0FT44ZZ Resection of Gallbladder, Percutaneous Endoscopic Approach (ICD-10-PCS; principal; 2018-10-05 07:30)
DX: K80.10 Calculus of gallbladder with chronic cholecystitis without obstruction (principal); B02.9 Zoster without complications; F17.210 Nicotine dependence, cigarettes, uncomplicated; E11.9 Type 2 diabetes mellitus without complications; Z88.2 Allergy status to sulfonamides; Z88.8 Allergy status to other drugs, medicaments and biological substances; Z79.899 Other long term (current) drug therapy
CPT/HCPCS: 36415; 80053; 85027; 85610; 88304; 96361; 96374; 96375; 96376; A9270-GY; G0378; J0360; J0690; J1885; J2270; J2405; J2704; J2710; J2765; J3010